=== PATIENT | female | born 2000 | race Two or more races ===

== ENCOUNTER 2023-07-23 20:30 | Inpatient (IN) | payer BC, OTHER ==
[~2023-07-23] VITALS: Ht 165.1 cm; Wt 99.8 kg
[2023-07-23 20:48] VITALS: BP 121/65; PULSE 101; RESP 20; TEMP 102.4
[2023-07-23] MEDS ORDERED: ACETAMINOPHEN 325 MG TAB PO PRN (21:35)
[2023-07-23 22:03] LABS: APPEARANCE,URINE SLIGHTLY CLOUDY (CLEAR); BILIRUBIN,URINE NEGATIVE (NEGATIVE); BLOOD, URINE NEGATIVE (NEGATIVE); COLOR,URINE YELLOW (YELLOW); LEUKOCYTE ESTERASE ,URINE NEGATIVE (NEGATIVE); NITRITE, URINE NEGATIVE (NEGATIVE); PROTEIN,URINE NEGATIVE (NEGATIVE); UGLUCOSE NEGATIVE (NEGATIVE); UROBILINOGEN,URINE 0.2 EU/dL (0.2 - 1)
[2023-07-23 22:24] LABS: BASOPHILS % (AUTO) 0.3 % (0.0-2.0); EOSINOPHILS # (AUTO) 0.1 K/uL (0-0.4); EOSINOPHILS % (AUTO) 1.1 % (0.0-4.0); HEMATOCRIT 35.6 % (36-48); HEMOGLOBIN 12.1 g/dL (12.0-16.0); LYMPHOCYTES # (AUTO) 0.4 K/uL (2.5-16.5); LYMPHOCYTES % (AUTO) 3.7 % (20.5-51.1); MEAN CORPUSCULAR HEMOGLOBIN 30 pg (27-31); MEAN CORPUSCULAR HGB CONC 34 g/dL (33-37); MEAN CORPUSCULAR VOLUME 87.6 fL (80-94); MONOCYTES # (AUTO) 0.5 K/uL (0.8-1.0); MONOCYTES % (AUTO) 5.3 % (1.7-9.3); NEUTROPHILS # (AUTO) 8.7 K/uL (1.8-7.7); NEUTROPHILS % (AUTO) 89.6 % (42.2-75.2); PLATELET COUNT (AUTO) 165 K/uL (140-450); RED BLOOD CELL COUNT(AUTO) 4.06 MIL/uL (4.20-5.40); RED CELL DISTRIBUTION WIDTH 12.8 % (11.6-13.7); WHITE BLOOD COUNT (AUTO) 9.7 K/uL (4.8-10.8)
[2023-07-23] MEDS ORDERED: ACETAMINOPHEN EXTRA STRENGTH 500 MG TAB ONE (22:25)
[2023-07-23] MEDS: LACTATED RINGERS 1,000 ML IV SCH (22:41)
[2023-07-23 22:51] LABS: ALBUMIN 2.3 g/dL (3.4-5.0); ANION GAP 14.7 (8-16); CALCIUM 8.7 mg/dL (8.5-10.1); CARBON DIOXIDE 21.4 mmol/L (21-32); CREATININE 0.9 mg/dL (0.6-1.3); POTASSIUM 4.1 mmol/L (3.5-5.1); TOTAL BILIRUBIN 0.4 mg/dL (0.0-1.0); TOTAL PROTEIN, SERUM 6.4 g/dL (6.4-8.2)
[2023-07-23] MEDS ORDERED: FERR-212 PO (23:54)
[2023-07-23] MEDS ORDERED: PREN-537 PO (23:54)
[2023-07-23] MEDS ORDERED: FOLIC ACID (23:54)
[2023-07-24] MEDS: ONDANSETRON 4 MG/2 ML VIAL IVP PRN ×2 (02:33→09:31)
[2023-07-24] MEDS: LACTATED RINGERS 1,000 ML IV SCH ×4 (02:35→21:01)
[2023-07-24] MEDS: ACETAMINOPHEN EXTRA STRENGTH 500 MG TAB PO PRN ×2 (04:38→15:17)
[2023-07-24] MEDS ORDERED: METHYLERGONOVINE 0.2 MG/ML AMP IM PRN (11:10)
[2023-07-24] MEDS ORDERED: CARBOPROST 250 MCG/ML AMP IM PRN (11:10)
[2023-07-24] MEDS: MISOPROSTOL 25 MCG TAB VG PRN ×2 (12:11→18:06)
[2023-07-24] MEDS ORDERED: MORPHINE SULFATE 10 MG/ML VIAL IVP PRN (12:20)
[2023-07-24] MEDS: METOCLOPRAMIDE 10 MG/2 ML INJ VIAL IVP PRN (13:11)
[2023-07-25] MEDS: MISOPROSTOL 25 MCG TAB VG PRN ×2 (00:05→06:07)
[2023-07-25] MEDS: ONDANSETRON 4 MG/2 ML VIAL IVP PRN (01:04)
[2023-07-25] MEDS: LACTATED RINGERS 1,000 ML IV SCH (03:40)
[2023-07-25] MEDS: BENZONATATE 100 MG CAPLF PO PRN ×2 (08:52→16:47)
[2023-07-25] MEDS: PANTOPRAZOLE 40 MG TABEC PO SCH (08:54)
[2023-07-25] MEDS ORDERED: MISOPROSTOL 25 MCG TAB ONE ×2 (12:16→17:53)
[2023-07-25] MEDS ORDERED: OXYTOCIN 20 UNITS in LACTATED RINGERS 1,000 ML IV SCH (19:00)
[2023-07-25] MEDS ORDERED: OXYTOCIN 20 UNITS/LR PREMIX 1,000 ML IV ONE (20:10)
[2023-07-26 01:15] VITALS: BP 150/101; PULSE 68; RESP 18
[2023-07-26] MEDS: ONDANSETRON 4 MG/2 ML VIAL IVP PRN (01:16)
[2023-07-26] MEDS ORDERED: ROPIVACAINE 0.2%/NS PREMIX 200 ML EPI ONE (02:31)
[2023-07-26] MEDS: METOCLOPRAMIDE 10 MG/2 ML INJ VIAL IVP PRN (03:50)
[2023-07-26] MEDS: BENZONATATE 100 MG CAPLF PO PRN (04:49)
[2023-07-26] MEDS: LACTATED RINGERS 1,000 ML IV SCH ×2 (06:52)
[2023-07-26] MEDS: ACETAMINOPHEN EXTRA STRENGTH 500 MG TAB PO PRN (07:54)
[2023-07-26] MEDS: PANTOPRAZOLE 40 MG TABEC PO SCH (09:01)
[2023-07-26] MEDS ORDERED: METHYLERGONOVINE 0.2 MG/ML AMP ONE ×2 (13:14→13:55)
[2023-07-26] MEDS ORDERED: MISOPROSTOL 200 MCG TAB ONE (13:26)
[2023-07-26] MEDS ORDERED: MISOPROSTOL 100 MCG TAB RC SCH (13:55)
[2023-07-26] MEDS ORDERED: METHYLERGONOVINE 0.2 MG/ML AMP IM PRN (13:55)
[2023-07-26] MEDS ORDERED: METHYLERGONOVINE 0.2 MG TAB PO PRN (14:45)
[2023-07-26] MEDS ORDERED: IBUPROFEN 800 MG TAB PO PRN (14:45)
[2023-07-26] MEDS ORDERED: BENZOCAINE/MENTHOL 20%-0.5% 60 GM CAN TP PRN (14:45)
[2023-07-26] MEDS ORDERED: OXYTOCIN 10 UNITS/ML VIAL IM PRN (14:45)
[2023-07-26] MEDS ORDERED: MEASLES, MUMPS, AND RUBELLA 1 VIAL SQVAC ONE (14:45)
[2023-07-26] MEDS ORDERED: MEASLES, MUMPS, AND RUBELLA 1 VIAL SQVAC PRN (14:50)
[2023-07-27] MEDS: BENZONATATE 100 MG CAPLF PO PRN ×2 (01:12→17:14)
[2023-07-27 06:22] LABS: HEMATOCRIT 24.8 % (36-48); HEMOGLOBIN 8.8 g/dL (12.0-16.0)
[2023-07-27] MEDS: PANTOPRAZOLE 40 MG TABEC PO SCH (10:27)
== END 2023-07-28 12:00 | disposition home or self-care (01) | DRG 806 ==
LOC: MLD 20:30 → OBSVTOIN 07-24 11:00 → MFCC 07-26 15:55
PROVIDERS: ADMIT Obstetrics & Gynecology; ATTEND Obstetrics & Gynecology
PROC: 10E0XZZ Delivery of Products of Conception, External Approach (ICD-10-PCS; principal; 2023-07-25)
PROC: 3E0DXGC Introduction of Other Therapeutic Substance into Mouth and Pharynx, External Approach (ICD-10-PCS; 2023-07-25)
DX: O48.0 Post-term pregnancy (principal); O98.52 Other viral diseases complicating childbirth; Z37.0 Single live birth; O99.62 Diseases of the digestive system complicating childbirth; B34.9 Viral infection, unspecified; Z20.822 Contact with and (suspected) exposure to COVID-19; K21.9 Gastro-esophageal reflux disease without esophagitis; O90.81 Anemia of the puerperium; D64.9 Anemia, unspecified; Z3A.40 40 weeks gestation of pregnancy
CPT/HCPCS: 36415; 51702; 59200; 59409; 76805; 80053; 81003; 85018; 85025; 85730; 86592; 86886; 86900; 86901; 87040; 87086; G0378; J2210; J2270; J2405; J2590; J2765; J2795; J7120